=== PATIENT | female | born 1975 | race African-American/Black ===

== ENCOUNTER 2021-12-25 11:52 | Emergency (ER) | payer BC, SELFPAY ==
[2021-12-25] VITALS (14 sets, daily range): BP systolic 172–214; BP diastolic 96–132; PULSE 69–86; RESP 13–22; TEMP 36.4–36.8; O2SAT 98–100
--- NOTE | ~2021-12-25 | XR_ITS ---
EXAMINATION: XR chest 2V DATE: 12/25/2021 13:07 INDICATION: Chest pain TECHNIQUE: Frontal and lateral views of the chest are obtained COMPARISON: None available FINDINGS: The lungs are free of acute opacities. No pleural effusion or pneumothorax. The cardiomedia stinal silhouette is normal. The visualized bones and soft tissues are unremarkable. IMPRESSION: 1. No acute cardiopulmonary abnormality. Reviewed, dictated and finalized at location B.
--- NOTE | 2021-12-25 12:23 | ECG_ITS ---
Measurements Intervals [place] Rate: 85 P: 48 MT: 160 QRS: -9 QRSD: 87 T: -28 QT: 371 QTc: 442 Interpretive Statements SINUS RHYTHM POSSIBLE LEFT ATRIAL ENLARGEMENT LEFT VENTRICULAR HYPERTROPHY T WAVE ABNORMALITY IN ANTEROLATERAL LEADS- CONSIDER ISCHEMIA ABNORMAL ECG Electronically Signed On 12-25-2021 13:04:45 CDT by [place] Meadows D.O.
--- NOTE | 2021-12-25 13:08 | ED.GENADULT ---
HPI - General Adult General Chief complaint: Recheck/Abnormal Lab/Rx Stated complaint: high blood pressure, HANNA Time Seen by Provider: 12/25/21 12:34 History of Present Illness HPI narrative: Patient is a 46-year-old female who presents ER with elevated blood pressure. Patient reports for the last month whenever she takes her blood pressure she has been running 190/110 mmHg. She said no chest pain or shortness of breath or nausea or vomiting. She has no history of hypertension but does take Lasix as needed for lower extremity swelling that occurs when she is sitting at work. She is currently in a mental health facility dealing with depression and anxiety. She has no suicidal ideation. She reports that she checked in yesterday and her blood pressure was high. Today she was having a headache and had some tingling in her arm and her blood pressure was still high so she was sent to the ER for further evaluation. She does not take any medication for her headache. She cannot describe any modifying factors for the head or the arm. Related Data Allergies Allergy/AdvReac Type Severity Reaction Status Date / Time No Known Allergies Allergy Verified 12/25/21 13:07 Review of Systems Review of Systems: All systems reviewed & are unremarkable except as noted in HPI and below Constitutional: Constitutional: Denies chills, Denies fatigue and Denies fever(s) Eyes: Eyes: Denies change in vision Cardiovascular: Cardiovascular: Denies chest pain, Denies rapid heart rate and Denies radiating jaw, neck or arm pain Respiratory: Respiratory: Denies cough and Denies dyspnea Gastrointestinal: Gastrointestinal: Denies abdominal pain, Denies nausea and Denies vomiting Musculoskeletal: Musculoskeletal: Denies back pain, Denies arthralgias and Denies joint swelling Comments: Tingling left arm from elbow to hand. Neurologic: Reports headache(s), Denies focal weakness and Denies numbness PMFSH Past Medical History Medical History (Updated 12/25/21 @ 14:44 by Bautista Dos Santos MD) Depression Surgical History Surgical History (Updated 12/25/21 @ 13:10 by Bautista Dos Santos MD) No pertinent past surgical history Social History Social History (Updated 12/25/21 @ 13:10 by Bautista Dos Santos MD) Smoking status: Never smoker Exam Narrative: GENERAL: Well-appearing, obese, and in no acute distress. HEAD: Normocephalic, atraumatic. EYES: PERRL and EOMI. CHEST: Clear to auscultation. No respiratory distress. HEART: Regular rate and rhythm. Normal peripheral pulses. EXTREMITIES: Normal range of motion. No edema. SKIN: Warm, dry, no rash. NEURO: No focal deficits. Alert and oriented x3. PSYCH: Normal mood and affect. Course Course Emergency Course: Patient resting comfortably. Headache improved with Tylenol. Blood pressure zek668/96 mmHg. Its highest was 214/113 mmHg. Patient received Norvasc 10 mg p.o. We will continue this at home and also add hydrochlorothiazide. Vital Signs Vital signs: Vital Signs Temperature 97.5 F L 12/25/21 12:03 Pulse Rate 86 12/25/21 12:03 Respiratory Rate 18 12/25/21 12:03 Blood Pressure 214/113 H 12/25/21 12:03 Pulse Oximetry 98 12/25/21 12:03 Temperature 97.5 F L 12/25/21 12:03 Pulse Rate 76 12/25/21 14:26 Respiratory Rate 15 12/25/21 14:00 Blood Pressure 186/97 H 12/25/21 14:26 Pulse Oximetry 100 12/25/21 14:00 Medical Decision Making Vital Signs Vital Signs: Vital Signs Temperature 97.5 F L 12/25/21 12:03 Pulse Rate 86 12/25/21 12:03 Respiratory Rate 18 12/25/21 12:03 Blood Pressure 214/113 H 12/25/21 12:03 Pulse Oximetry 98 12/25/21 12:03 Temperature 97.5 F L 12/25/21 12:03 Pulse Rate 76 12/25/21 14:26 Respiratory Rate 15 12/25/21 14:00 Blood Pressure 186/97 H 12/25/21 14:26 Pulse Oximetry 100 12/25/21 14:00 Lab Data Result diagrams: 12/25/21 12:57 12/25/21 12:57 Labs: L
[2021-12-25] MEDS: amLODIPine BESYLATE 5 MG TABLET 10 MG PO (13:09)
[2021-12-25] MEDS: ACETAMINOPHEN 500 MG TABLET 1000 MG PO (13:09)
[2021-12-25 13:16] LABS: Basophils Absolute Auto 0.1 K/mm3 (0.0-0.1); Basophils Percent Auto 0.7 % (0.2-1.2); Eosinophils Absolute Auto 0.2 K/mm3 (0-0.3); Eosinophils Percent Auto 2.2 % (0-4.4); Hematocrit 42.2 % (37.0-47.0); Hemoglobin 13.1 g/dL (12.0-15.0); Immature Granulocyte Absolute 0.03 K/mm3 (0.00-0.031); Immature Granulocyte Percent A 0.3 % (0-0.5); Lymphocytes Absolute Auto 2.66 K/mm3 (0.9-3.2); Lymphocytes Percent Auto 23.9 % (18.3-44.2); Mean Corpuscular Volume 77.4 fl (80-100); Mean Platelet Volume 10.4 fl (7.4-10.4); Monocytes Absolute Auto 0.8 K/mm3 (0.1-0.6); Monocytes Percent Auto 7.2 % (2.6-8.5); Neutrophils Absolute Auto 7.3 K/mm3 (1.3-6.7); Neutrophils Percent Auto 65.7 % (45.5-73.1); Platelet Count Result 396 k/mm3 (150-375); Red Blood Count 5.45 M/mm3 (4.2-5.4); Red Cell Distribution Width 16.5 % (11.5-14.5); White Blood Count 11.1 K/mm3 (4.5-10.0)
[2021-12-25 13:26] LABS: Alanine Aminotransferase 15 U/L (6-35); Alkaline Phosphatase 124 U/L (38-126); Anion Gap 7 mmol/L (8-16); Aspartate Amino Transferase 21 U/L (14-36); Bilirubin,Total 0.2 mg/dL (0.2-1.3); Blood Urea Nitrogen 13 mg/dL (7-17); Carbon Dioxide 26 mmol/L (22-30); Chloride 104 mmol/L (98-107); Estimated CRCL calculation 91 ml/min; Estimated Glomerular Filt Rate > 60; Glucose 126 mg/dL (65-110); Potassium 3.7 mmol/L (3.4-5.0); Sodium 137 mmol/L (137-145)
[2021-12-25 13:37] LABS: Troponin I < 0.012 ng/mL (0.000-0.034)
== END 2021-12-25 15:14 | disposition home or self-care (01) ==
PROVIDERS: Emergency Provider Emergency Medicine; PCP Family Medicine
DX: I10 Essential (primary) hypertension (principal); F41.9 Anxiety disorder, unspecified; F32.A Depression, unspecified; R94.31 Abnormal electrocardiogram [ECG] [EKG]; I51.7 Cardiomegaly
CPT/HCPCS: 36415; 71046; 80053; 84484; 85025; 93005; 99284; A9270